=== PATIENT | female | born 1995 | race Caucasian/White ===

== ENCOUNTER → 2020-01-15 | Outpatient (CLI) | payer BC, OTHER ==
[~2020-01-15] MED LIST: LABE100 PO; SERT100 MT
[2020-01-15 14:48] LABS: BASOPHILS ABSOLUTE AUTO 0.01 K/mm3 (0.00-0.23); BASOPHILS PERCENT AUTO 0 % (0-2); EOSINOPHILS ABSOLUTE AUTO 0.02 K/mm3 (0.00-0.68); EOSINOPHILS PERCENT AUTO 0 % (0-6); Hematocrit 36.4 % (33.0-51.0); Hemoglobin 11.5 g/dL (11.5-16.0); IMMATURE GRAN ABSOLUTE AUTO 0.05 K/mm3 (0.00-0.10); IMMATURE GRAN PERCENT AUTO 1 % (0-1); LYMPHOCYTES ABSOLUTE AUTO 0.85 K/mm3 (0.84-5.20); LYMPHOCYTES PERCENT AUTO 9 % (21-46); MONOCYTES ABSOLUTE AUTO 0.79 K/mm3 (0.16-1.47); MONOCYTES PERCENT AUTO 8 % (4-13); Mean Corpuscular HGB 27.9 pg (26.0-34.0); Mean Corpuscular HGB Conc 31.6 g/dL (31.5-36.5); Mean Corpuscular Volume 88 fL (80-100); Mean Platelet Volume 10.9 fL (9.1-12.4); NEUTROPHILS ABSOLUTE AUTO 7.76 K/mm3 (1.96-9.15); NEUTROPHILS PERCENT AUTO 82 % (41-73); Platelet Count 269 K/mm3 (150-400); RDW Coefficient Variation 17.6 % (11.7-14.2); RDW Standard Deviation 57.7 fL (35.1-46.3); Red Blood Cell Count 4.12 M/mm3 (3.80-5.20); White Blood Cell Count 9.48 K/mm3 (4.00-11.30)
[2020-01-15 15:24] LABS: Alanine Aminotransfer (ALT/SGP 18 U/L (12-78); Albumin, Blood 2.6 g/dL (3.4-5.0); Albumin/Globulin Ratio 0.6 (0.8-1.8); Alk Phos 151 U/L (50-136); Anion Gap 7 mmol/L (6-16); Aspartate Aminotrans (AST/SGOT 20 U/L (12-37); Bilirubin, Total 0.3 mg/dL (0.1-1.0); Blood Urea Nitrogen 4 mg/dL (8-24); Bun/Creatinine Ratio 8.5 (12.0-20.0); CO2, Blood 24 mmol/L (21-32); Calcium, Blood 8.6 mg/dL (8.5-10.1); Chloride, Blood 109 mmol/L (98-108); Creatinine, Blood 0.47 mg/dL (0.40-1.00); Globulin, Blood 4.1 g/dL (2.2-4.0); Glomerular Filtration Rate >60 (60-); Glucose, Blood 77 mg/dL (70-99); Potassium, Blood 3.3 mmol/L (3.5-5.5); Sodium, Blood 140 mmol/L (136-145); Total Protein, Blood 6.7 g/dL (6.4-8.2)
[2020-01-15 15:26] LABS: Protein, Urine Random <5.0 mg/dL (0.0-11.9); Protein/Creat Ratio, Ur Random Unable to Calculate
== END | disposition home or self-care (01) ==
LOC: LAB 12:36 → LAB SHORT 12:36
PROVIDERS: Obstetrics & Gynecology
DX: Z34.03 Encounter for supervision of normal first pregnancy, third trimester (principal); Z3A.38 38 weeks gestation of pregnancy
CPT/HCPCS: 80053; 82570; 84156; 85025

== ENCOUNTER 2020-01-16 05:53 | Inpatient (IN) | payer BC, OTHER ==
[~2020-01-16] VITALS: Ht 170.2 cm; Wt 68.1 kg
[2020-01-16] MEDS ORDERED: LABE100 PO (06:12)
[2020-01-16] MEDS ORDERED: SERT100 MT (06:17)
[2020-01-16 06:33] LABS: BASOPHILS ABSOLUTE AUTO 0.01 K/mm3 (0.00-0.23); BASOPHILS PERCENT AUTO 0 % (0-2); EOSINOPHILS ABSOLUTE AUTO 0.03 K/mm3 (0.00-0.68); EOSINOPHILS PERCENT AUTO 0 % (0-6); Hematocrit 35.1 % (33.0-51.0); Hemoglobin 11.4 g/dL (11.5-16.0); IMMATURE GRAN ABSOLUTE AUTO 0.05 K/mm3 (0.00-0.10); IMMATURE GRAN PERCENT AUTO 1 % (0-1); LYMPHOCYTES ABSOLUTE AUTO 1.08 K/mm3 (0.84-5.20); LYMPHOCYTES PERCENT AUTO 11 % (21-46); MONOCYTES ABSOLUTE AUTO 0.72 K/mm3 (0.16-1.47); MONOCYTES PERCENT AUTO 8 % (4-13); Mean Corpuscular HGB 28.2 pg (26.0-34.0); Mean Corpuscular HGB Conc 32.5 g/dL (31.5-36.5); Mean Corpuscular Volume 87 fL (80-100); Mean Platelet Volume 10.3 fL (9.1-12.4); NEUTROPHILS ABSOLUTE AUTO 7.68 K/mm3 (1.96-9.15); NEUTROPHILS PERCENT AUTO 80 % (41-73); Platelet Count 272 K/mm3 (150-400); RDW Coefficient Variation 17.6 % (11.7-14.2); RDW Standard Deviation 56.8 fL (35.1-46.3); Red Blood Cell Count 4.04 M/mm3 (3.80-5.20); White Blood Cell Count 9.57 K/mm3 (4.00-11.30)
[2020-01-16 06:56] LABS: Creatinine, Urine Random 43.3 mg/dL (27.00-270.00); Protein, Urine Random 11.9 mg/dL (0.0-11.9); Protein/Creat Ratio, Ur Random 0.3
[2020-01-16 06:57] LABS: Alanine Aminotransfer (ALT/SGP 20 U/L (12-78); Albumin, Blood 2.7 g/dL (3.4-5.0); Albumin/Globulin Ratio 0.7 (0.8-1.8); Alk Phos 150 U/L (50-136); Anion Gap 9 mmol/L (6-16); Aspartate Aminotrans (AST/SGOT 20 U/L (12-37); Bilirubin, Total 0.2 mg/dL (0.1-1.0); Blood Urea Nitrogen 5 mg/dL (8-24); Bun/Creatinine Ratio 11.2 (12.0-20.0); CO2, Blood 22 mmol/L (21-32); Calcium, Blood 8.6 mg/dL (8.5-10.1); Chloride, Blood 109 mmol/L (98-108); Creatinine, Blood 0.45 mg/dL (0.40-1.00); Globulin, Blood 4.1 g/dL (2.2-4.0); Glomerular Filtration Rate >60 (60-); Glucose, Blood 105 mg/dL (70-99); Potassium, Blood 3.2 mmol/L (3.5-5.5); Sodium, Blood 140 mmol/L (136-145); Total Protein, Blood 6.8 g/dL (6.4-8.2)
[2020-01-18 03:24] LABS: BASOPHILS ABSOLUTE AUTO 0.03 K/mm3 (0.00-0.23); BASOPHILS PERCENT AUTO 0 % (0-2); EOSINOPHILS ABSOLUTE AUTO 0.09 K/mm3 (0.00-0.68); EOSINOPHILS PERCENT AUTO 1 % (0-6); Hematocrit 32.8 % (33.0-51.0); Hemoglobin 10.5 g/dL (11.5-16.0); IMMATURE GRAN ABSOLUTE AUTO 0.06 K/mm3 (0.00-0.10); IMMATURE GRAN PERCENT AUTO 1 % (0-1); LYMPHOCYTES ABSOLUTE AUTO 1.85 K/mm3 (0.84-5.20); LYMPHOCYTES PERCENT AUTO 16 % (21-46); MONOCYTES ABSOLUTE AUTO 1.39 K/mm3 (0.16-1.47); MONOCYTES PERCENT AUTO 12 % (4-13); Mean Corpuscular HGB 28.5 pg (26.0-34.0); Mean Corpuscular Volume 89 fL (80-100); Mean Platelet Volume 10.2 fL (9.1-12.4); NEUTROPHILS ABSOLUTE AUTO 8.48 K/mm3 (1.96-9.15); NEUTROPHILS PERCENT AUTO 71 % (41-73); Platelet Count 230 K/mm3 (150-400); RDW Coefficient Variation 17.3 % (11.7-14.2); RDW Standard Deviation 57.4 fL (35.1-46.3); Red Blood Cell Count 3.68 M/mm3 (3.80-5.20)
== END 2020-01-18 14:40 | disposition home or self-care (01) | DRG 807 ==
LOC: OBS 05:53 → BC 05:54 → OBS 06:01 → BC 06:04
PROVIDERS: ADMIT Obstetrics & Gynecology
PROC: 10E0XZZ Delivery of Products of Conception, External Approach (ICD-10-PCS; principal; 2020-01-17)
PROC: 3E033VJ Introduction of Other Hormone into Peripheral Vein, Percutaneous Approach (ICD-10-PCS; 2020-01-17)
PROC: 10907ZC Drainage of Amniotic Fluid, Therapeutic from Products of Conception, Via Natural or Artificial Opening (ICD-10-PCS; 2020-01-17)
DX: O14.94 Unspecified pre-eclampsia, complicating childbirth (principal); Z37.0 Single live birth; O70.0 First degree perineal laceration during delivery; Z3A.39 39 weeks gestation of pregnancy
CPT/HCPCS: 36415; 51702; 80053; 82570; 84156; 85025; 86850; 86870; 86900; 86901; J0290; J1200; J1885; J2001; J2405; J2590; J3010; J7120

== ENCOUNTER 2023-10-24 06:34 | Emergency (ER) | payer OTHER ==
[~2023-10-24] VITALS: Ht 162.6 cm; Wt 38.6 kg
[~2023-10-24 06:34] MED LIST changes: +IMURAN50 MG PO; +OLAN5A MM; +PRED20 PO
[2023-10-24] MEDS ORDERED: Ativan1 MG PO (07:38)
[2023-10-24] MEDS ORDERED: OLAN10 PO (07:38)
[2023-10-24 07:48] VITALS: BP 143/90
== END 2023-10-24 07:55 | disposition home or self-care (01) ==
LOC: ER 06:34
DX: F15.959 Other stimulant use, unspecified with stimulant-induced psychotic disorder, unspecified (principal); Z88.2 Allergy status to sulfonamides; Z88.1 Allergy status to other antibiotic agents; Z79.899 Other long term (current) drug therapy
CPT/HCPCS: 99284; A9270

== ENCOUNTER 2023-10-27 05:18 | Emergency (ER) | payer OTHER ==
[~2023-10-27] VITALS: Ht 167.6 cm; Wt 40.8 kg
[~2023-10-27 05:18] MED LIST changes: +Ativan1 MG PO; +OLAN10 PO
[2023-10-27] MEDS ORDERED: DEPO-PROVE150 MG/1 M IM (05:42)
[2023-10-27] MEDS ORDERED: METR500 (05:45)
[2023-10-27] MEDS ORDERED: Vitamin D1000 UNI1 PO (05:45)
[2023-10-27 06:11] LABS: Source, Urine Clean Catch
[2023-10-27 06:11] LABS: BASOPHILS ABSOLUTE AUTO 0.03 K/mm3 (0.00-0.23); BASOPHILS PERCENT AUTO 0 % (0-2); EOSINOPHILS ABSOLUTE AUTO 0.18 K/mm3 (0.00-0.68); EOSINOPHILS PERCENT AUTO 1 % (0-6); Hematocrit 41.1 % (33.0-51.0); Hemoglobin 13.3 g/dL (11.5-16.0); IMMATURE GRAN ABSOLUTE AUTO 0.07 K/mm3 (0.00-0.10); IMMATURE GRAN PERCENT AUTO 1 % (0-1); LYMPHOCYTES ABSOLUTE AUTO 0.91 K/mm3 (0.84-5.20); LYMPHOCYTES PERCENT AUTO 6 % (21-46); MONOCYTES ABSOLUTE AUTO 0.86 K/mm3 (0.16-1.47); MONOCYTES PERCENT AUTO 6 % (4-13); Mean Corpuscular HGB 28.5 pg (26.0-34.0); Mean Corpuscular HGB Conc 32.4 g/dL (31.5-36.5); Mean Corpuscular Volume 88 fL (80-100); NEUTROPHILS ABSOLUTE AUTO 12.15 K/mm3 (1.96-9.15); NEUTROPHILS PERCENT AUTO 86 % (41-73); Platelet Count 431 K/mm3 (150-400); RDW Coefficient Variation 18.8 % (11.7-14.2); Red Blood Cell Count 4.67 M/mm3 (3.80-5.20)
[2023-10-27 06:16] LABS: Appearance, Urine Clear (Clear); Blood, Urine Neg (Neg); Color, Urine Amber (P-Yellow); Glucose Qualitative, Urine Neg (Neg); Ketones, Urine 1+ (Neg); Leukocyte Esterase, Urine 2+ (Neg); Nitrite, Urine Pos (Neg); Protein, Urine 2+ (Neg); Urobilinogen, Urine 1+ (Normal)
[2023-10-27 06:24] LABS: Albumin/Globulin Ratio 0.8 (0.8-1.8); Bilirubin, Total 0.6 mg/dL (0.1-1.0); Bun/Creatinine Ratio 13.2 (12.0-20.0); Calcium, Blood 8.7 mg/dL (8.5-10.1); Creatinine, Blood 0.68 mg/dL (0.40-1.00); Potassium, Blood 4.1 mmol/L (3.5-5.5)
[2023-10-27 06:28] LABS: Bilirubin, Urine 1+ (Neg)
[2023-10-27 06:29] LABS: Bacteria Rare /hpf; Red Blood Cells, Urine 0-2 /hpf (0-2); Squamous Epithelial Cells Rare /hpf (Few)
[2023-10-27 06:30] LABS: Calcium Oxalate Crystals Few /hpf; Mucus Light (0-Heavy)
[2023-10-27 08:39] LABS: Source, Urine Straight Cath
[2023-10-27 08:46] LABS: Appearance, Urine Clear (Clear); Bilirubin, Urine Neg (Neg); Blood, Urine Neg (Neg); Color, Urine Yellow (P-Yellow); Glucose Qualitative, Urine Neg (Neg); Ketones, Urine 2+ (Neg); Leukocyte Esterase, Urine 1+ (Neg); Nitrite, Urine Neg (Neg); Protein, Urine Neg (Neg); Urobilinogen, Urine NORM (Normal)
[2023-10-27 08:56] LABS: Bacteria Rare /hpf; Mucus Light (0-Heavy); Red Blood Cells, Urine Not Seen /hpf (0-2); Squamous Epithelial Cells Not Seen /hpf (Few)
[2023-10-27 11:11] VITALS: BP 121/85
== END 2023-10-27 11:25 | disposition home or self-care (01) ==
LOC: ER 05:18
PROVIDERS: Emergency Medicine
DX: E86.1 Hypovolemia (principal); F19.282 Other psychoactive substance dependence with psychoactive substance-induced sleep disorder; K50.90 Crohn's disease, unspecified, without complications; Z79.52 Long term (current) use of systemic steroids
CPT/HCPCS: 70450; 80053; 81001; 81025; 82550; 85025; 87086; 93005; 93010; 96360; 96361; 99285-25; J7030; P9612

== ENCOUNTER 2023-11-08 00:30 | Day surgery (SDC) | payer OTHER ==
[~2023-11-08 00:30] MED LIST changes: +DEPO-PROVE150 MG/1 M IM; +METR500; +Vitamin D1000 UNI1 PO
[2023-11-08] MEDS ORDERED: Acetaminophen 325 MG TABLET PO SCH (07:25)
[2023-11-08 13:43] VITALS: BP 135/91
[2023-11-08] MEDS ORDERED: Infliximab-DYYB 200 MG in NS 250 ML IV SCH (14:00)
[2023-11-08] MEDS ORDERED: CIPR500 PO (14:24)
[2023-11-08] MEDS ORDERED: ORTIKOS9 M1 PO (14:25)
[2023-11-08] MEDS ORDERED: VITAMIN D5000 UNIT PO (14:27)
[2023-11-08 14:34] VITALS: BP 137/72
[2023-11-08 14:48] VITALS: BP 130/71
[2023-11-08 15:02] VITALS: BP 117/75
[2023-11-08 15:22] VITALS: BP 123/73
[2023-11-08 15:33] VITALS: BP 122/76
== END 2023-11-08 16:05 | disposition home or self-care (01) ==
LOC: ATC 00:30
DX: K50.90 Crohn's disease, unspecified, without complications (principal); F41.9 Anxiety disorder, unspecified; Z88.2 Allergy status to sulfonamides; Z88.8 Allergy status to other drugs, medicaments and biological substances; D50.9 Iron deficiency anemia, unspecified; F29 Unspecified psychosis not due to a substance or known physiological condition
CPT/HCPCS: 96413; 96415; A9270; J7050; Q5103

== ENCOUNTER → 2024-01-10 | Outpatient (CLI) | payer OTHER ==
[~2024-01-10] MED LIST changes: +CIPR500 PO; +ONDA4ODT MM; +ORTIKOS9 M1 PO; +VITAMIN D5000 UNIT PO
[2024-01-10 19:00] LABS: BASOPHILS ABSOLUTE AUTO 0.01 K/mm3 (0.00-0.23); BASOPHILS PERCENT AUTO 0 % (0-2); EOSINOPHILS ABSOLUTE AUTO 0.06 K/mm3 (0.00-0.68); EOSINOPHILS PERCENT AUTO 1 % (0-6); Hematocrit 40.1 % (33.0-51.0); Hemoglobin 13.3 g/dL (11.5-16.0); IMMATURE GRAN ABSOLUTE AUTO 0.02 K/mm3 (0.00-0.10); IMMATURE GRAN PERCENT AUTO 0 % (0-1); LYMPHOCYTES ABSOLUTE AUTO 1.04 K/mm3 (0.84-5.20); LYMPHOCYTES PERCENT AUTO 18 % (21-46); MONOCYTES ABSOLUTE AUTO 0.39 K/mm3 (0.16-1.47); MONOCYTES PERCENT AUTO 7 % (4-13); Mean Corpuscular HGB 29.1 pg (26.0-34.0); Mean Corpuscular HGB Conc 33.2 g/dL (31.5-36.5); Mean Corpuscular Volume 88 fL (80-100); Mean Platelet Volume 9.6 fL (9.1-12.4); NEUTROPHILS PERCENT AUTO 74 % (41-73); Platelet Count 294 K/mm3 (150-400); RDW Coefficient Variation 13.2 % (11.7-14.2); RDW Standard Deviation 42.5 fL (35.1-46.3); Red Blood Cell Count 4.57 M/mm3 (3.80-5.20); White Blood Cell Count 5.72 K/mm3 (4.00-11.30)
[2024-01-10 22:06] LABS: Albumin, Blood 3.5 g/dL (3.4-5.0); Albumin/Globulin Ratio 0.9 (0.8-1.8); Bilirubin, Total 0.2 mg/dL (0.1-1.0); Bun/Creatinine Ratio 15.3 (12.0-20.0); Calcium, Blood 9.2 mg/dL (8.5-10.1); Creatinine, Blood 0.52 mg/dL (0.40-1.00); Total Protein, Blood 7.5 g/dL (6.4-8.2)
== END ==
LOC: LAB SHORT 16:40 → LAB 16:40
PROVIDERS: Family Medicine
DX: R11.2 Nausea with vomiting, unspecified (principal)
CPT/HCPCS: 80053; 85025

== ENCOUNTER 2024-03-27 12:44 | Emergency (ER) | payer OTHER ==
[~2024-03-27] VITALS: Ht 167.6 cm; Wt 56.7 kg
[2024-03-27 12:49] VITALS: BP 145/91
[2024-03-27] MEDS ORDERED: Robaxin750 MG PO (13:25)
== END 2024-03-27 13:32 | disposition home or self-care (01) ==
LOC: ER 12:44
DX: M54.6 Pain in thoracic spine (principal); V89.2XXA Person injured in unspecified motor-vehicle accident, traffic, initial encounter; Z79.899 Other long term (current) drug therapy; Z88.1 Allergy status to other antibiotic agents
CPT/HCPCS: 72070; 99283-25

== ENCOUNTER 2024-04-01 06:11 | Emergency (ER) | payer OTHER ==
[~2024-04-01] VITALS: Ht 167.6 cm; Wt 56.7 kg
[~2024-04-01 06:11] MED LIST changes: +Robaxin750 MG PO
[2024-04-01 08:46] LABS: BASOPHILS ABSOLUTE AUTO 0.02 K/mm3 (0.00-0.23); BASOPHILS PERCENT AUTO 0 % (0-2); EOSINOPHILS ABSOLUTE AUTO 0.01 K/mm3 (0.00-0.68); EOSINOPHILS PERCENT AUTO 0 % (0-6); Hematocrit 40.3 % (33.0-51.0); Hemoglobin 13.5 g/dL (11.5-16.0); IMMATURE GRAN ABSOLUTE AUTO 0.06 K/mm3 (0.00-0.10); IMMATURE GRAN PERCENT AUTO 0 % (0-1); LYMPHOCYTES ABSOLUTE AUTO 0.14 K/mm3 (0.84-5.20); LYMPHOCYTES PERCENT AUTO 1 % (21-46); MONOCYTES ABSOLUTE AUTO 0.62 K/mm3 (0.16-1.47); MONOCYTES PERCENT AUTO 4 % (4-13); Mean Corpuscular HGB 29.3 pg (26.0-34.0); Mean Corpuscular HGB Conc 33.5 g/dL (31.5-36.5); Mean Corpuscular Volume 88 fL (80-100); Mean Platelet Volume 9.9 fL (9.1-12.4); NEUTROPHILS PERCENT AUTO 94 % (41-73); Platelet Count 344 K/mm3 (150-400); RDW Coefficient Variation 13.2 % (11.7-14.2); RDW Standard Deviation 42.4 fL (35.1-46.3); White Blood Cell Count 14.95 K/mm3 (4.00-11.30)
[2024-04-01 08:58] LABS: Albumin, Blood 4.3 g/dL (3.4-5.0); Albumin/Globulin Ratio 1.1 (0.8-1.8); Bilirubin, Total 0.7 mg/dL (0.1-1.0); Bun/Creatinine Ratio 24.8 (12.0-20.0); Creatinine, Blood 0.52 mg/dL (0.40-1.00); Potassium, Blood 3.6 mmol/L (3.5-5.5); Total Protein, Blood 8.3 g/dL (6.4-8.2)
[2024-04-01] MEDS ORDERED: Ondansetron HCl 2 MG / ML 2ML Vial IV ONE (09:40)
[2024-04-01] MEDS ORDERED: NS 1,000 ML IV SCH (09:40)
[2024-04-01 09:46] VITALS: BP 143/87
[2024-04-01] MEDS ORDERED: METO10 PO (10:48)
[2024-04-01] MEDS ORDERED: ONDA4ODT MM (10:48)
== END 2024-04-01 11:00 | disposition home or self-care (01) ==
LOC: ER 06:11
PROVIDERS: Student in an Organized Health Care Education/Training Program
DX: K52.9 Noninfective gastroenteritis and colitis, unspecified (principal); Z87.19 Personal history of other diseases of the digestive system; Z79.899 Other long term (current) drug therapy; Z88.1 Allergy status to other antibiotic agents
CPT/HCPCS: 80053; 83690; 85025; 96361; 96374; 99284-25; J2405; J7030

== ENCOUNTER 2024-04-10 03:34 | Day surgery (SDC) | payer OTHER ==
[~2024-04-10 03:34] MED LIST changes: +METO10 PO
[2024-04-10] MEDS ORDERED: Acetaminophen 325 MG TABLET PO SCH (07:20)
[2024-04-10 13:38] VITALS: BP 124/70
[2024-04-10] MEDS ORDERED: Infliximab-DYYB 300 MG in NS 250 ML IV SCH (13:45)
--- NOTE | 2024-04-10 13:45 | NUR ---
PT DECLINES PRE MEDS.
== END 2024-04-10 16:15 | disposition home or self-care (01) ==
LOC: ATC 03:34
DX: K50.90 Crohn's disease, unspecified, without complications (principal); D50.9 Iron deficiency anemia, unspecified; K60.3 Anal fistula; F29 Unspecified psychosis not due to a substance or known physiological condition
CPT/HCPCS: 96413; 96415; J7050; Q5103

== ENCOUNTER 2024-07-31 00:33 | Day surgery (SDC) | payer OTHER ==
[~2024-07-31] VITALS: Wt 60.8 kg
[2024-07-31 14:02] VITALS: BP 143/71
[2024-07-31] MEDS ORDERED: Infliximab-DYYB 500 MG in NS 250 ML IV SCH (14:10)
== END 2024-07-31 16:43 | disposition home or self-care (01) ==
LOC: ATC 00:33
DX: K50.90 Crohn's disease, unspecified, without complications (principal); D50.9 Iron deficiency anemia, unspecified; F29 Unspecified psychosis not due to a substance or known physiological condition; K60.30 Anal fistula, unspecified; Z79.899 Other long term (current) drug therapy; Z88.8 Allergy status to other drugs, medicaments and biological substances
CPT/HCPCS: 96365; 96366; J7050; Q5103

== ENCOUNTER 2024-10-02 07:32 | Day surgery (SDC) | payer OTHER ==
--- NOTE | 2024-09-25 06:56 | NUR ---
Pt is ill today and will not be in for her infusion today.
[~2024-10-02] VITALS: Wt 66.7 kg
[2024-10-02 07:40] VITALS: BP 146/91
[2024-10-02] MEDS ORDERED: Infliximab-DYYB 500 MG in NS 250 ML IV SCH (07:45)
== END 2024-10-02 10:09 | disposition home or self-care (01) ==
LOC: ATC 07:32
DX: K50.90 Crohn's disease, unspecified, without complications (principal); D50.9 Iron deficiency anemia, unspecified; F29 Unspecified psychosis not due to a substance or known physiological condition; Z88.1 Allergy status to other antibiotic agents; Z88.8 Allergy status to other drugs, medicaments and biological substances; Z79.899 Other long term (current) drug therapy
CPT/HCPCS: 96413; 96415; J7050; Q5103

== ENCOUNTER 2024-11-27 01:36 | Day surgery (SDC) | payer OTHER ==
[2024-11-27 14:17] VITALS: BP 119/78
[2024-11-27] MEDS ORDERED: Infliximab-DYYB 500 MG in NS 250 ML IV SCH (14:20)
== END 2024-11-27 16:41 | disposition home or self-care (01) ==
LOC: ATC 01:36
DX: K50.90 Crohn's disease, unspecified, without complications (principal); D50.9 Iron deficiency anemia, unspecified; Z79.899 Other long term (current) drug therapy
CPT/HCPCS: 96413; 96415; J7050; Q5103

== ENCOUNTER 2025-01-22 08:33 | Day surgery (SDC) | payer OTHER ==
[2025-01-22 14:14] VITALS: BP 137/79
[2025-01-22] MEDS ORDERED: NS IV SCH (14:30)
[2025-01-22] MEDS ORDERED: INFLIXIMAB DYYB IV SCH (14:30)
== END 2025-01-22 17:08 | disposition home or self-care (01) ==
LOC: ATC 08:33
DX: K50.90 Crohn's disease, unspecified, without complications (principal); D50.9 Iron deficiency anemia, unspecified; Z88.8 Allergy status to other drugs, medicaments and biological substances
CPT/HCPCS: 96413; 96415; J7050; Q5103

== ENCOUNTER 2025-05-14 01:45 | Day surgery (SDC) | payer OTHER ==
[~2025-05-14] VITALS: Wt 73.9 kg
[2025-05-14 14:09] VITALS: BP 131/83
[2025-05-14] MEDS ORDERED: Infliximab-DYYB 600 MG in NS 250 ML IV SCH (14:25)
== END 2025-05-14 16:51 | disposition home or self-care (01) ==
LOC: ATC 01:45
DX: K50.90 Crohn's disease, unspecified, without complications (principal); M12.80 Other specific arthropathies, not elsewhere classified, unspecified site; D50.9 Iron deficiency anemia, unspecified; Z79.620 Long term (current) use of immunosuppressive biologic; Z79.624 Long term (current) use of inhibitors of nucleotide synthesis; Z88.2 Allergy status to sulfonamides; Z88.8 Allergy status to other drugs, medicaments and biological substances
CPT/HCPCS: 96413; 96415; J7050; Q5103

== ENCOUNTER 2025-07-09 00:19 | Day surgery (SDC) | payer OTHER ==
[~2025-07-09] VITALS: Wt 71.1 kg
[2025-07-09 14:15] VITALS: BP 123/88
[2025-07-09] MEDS ORDERED: Infliximab-DYYB 500 MG in NS 250 ML IV SCH (15:15)
== END 2025-07-09 17:37 | disposition home or self-care (01) ==
LOC: ATC 00:19
DX: K50.10 Crohn's disease of large intestine without complications (principal); K60.30 Anal fistula, unspecified; Z88.1 Allergy status to other antibiotic agents; Z88.8 Allergy status to other drugs, medicaments and biological substances
CPT/HCPCS: 96413; J7050; Q5103

== ENCOUNTER 2025-07-30 08:52 | Emergency (ER) | payer OTHER ==
[~2025-07-30] VITALS: Ht 162.6 cm; Wt 61.2 kg
[2025-07-30] MEDS ORDERED: Ondansetron HCl 2 MG / ML 2ML Vial IV ONE (09:10)
[2025-07-30] MEDS ORDERED: NS 1,000 ML IV SCH (09:10)
[2025-07-30 09:48] VITALS: BP 112/65
[2025-07-30 10:05] LABS: BASOPHILS ABSOLUTE AUTO 0.02 K/mm3 (0.00-0.23); BASOPHILS PERCENT AUTO 0 % (0-2); EOSINOPHILS ABSOLUTE AUTO 0.00 K/mm3 (0.00-0.68); EOSINOPHILS PERCENT AUTO 0 % (0-6); Hematocrit 40.2 % (33.0-51.0); Hemoglobin 13.4 g/dL (11.5-16.0); IMMATURE GRAN ABSOLUTE AUTO 0.07 K/mm3 (0.00-0.10); IMMATURE GRAN PERCENT AUTO 1 % (0-1); LYMPHOCYTES ABSOLUTE AUTO 0.68 K/mm3 (0.84-5.20); LYMPHOCYTES PERCENT AUTO 4 % (21-46); MONOCYTES ABSOLUTE AUTO 1.08 K/mm3 (0.16-1.47); MONOCYTES PERCENT AUTO 7 % (4-13); Mean Corpuscular HGB Conc 33.3 g/dL (31.5-36.5); Mean Corpuscular Volume 88 fL (80-100); NEUTROPHILS ABSOLUTE AUTO 13.60 K/mm3 (1.96-9.15); NEUTROPHILS PERCENT AUTO 88 % (41-73); NRBC ABSOLUTE 0.00 K/mm3 (0.00-0.02); NRBC Auto 0.0 /100 WBC (0.0-0.2); Platelet Count 343 K/mm3 (150-400); RDW Coefficient Variation 13.2 % (11.7-14.2); RDW Standard Deviation 42.1 fL (35.1-46.3)
[2025-07-30 10:15] LABS: Alanine Aminotransfer (ALT/SGP 38.0 U/L (12-78); Albumin, Blood 4.4 g/dL (3.4-5.0); Albumin/Globulin Ratio 1.4 (0.8-1.8); Anion Gap 11.0 mmol/L (3-11); Aspartate Aminotrans (AST/SGOT 18.0 U/L (12-37); Bilirubin, Total 0.8 mg/dL (0.1-1.0); Blood Urea Nitrogen 13.0 mg/dL (8-24); CO2, Blood 22.0 mmol/L (21-32); Calcium, Blood 9.1 mg/dL (8.5-10.1); Chloride, Blood 108.0 mmol/L (98-108); Creatinine, Blood 0.58 mg/dL (0.40-1.00); Globulin, Blood 3.2 g/dL (2.2-4.0); Glucose, Blood 90.0 mg/dL (70-99); Potassium, Blood 3.4 mmol/L (3.5-5.5); Sodium, Blood 138.0 mmol/L (136-145); Total Protein, Blood 7.6 g/dL (6.4-8.2)
== END 2025-07-30 10:43 | disposition home or self-care (01) ==
LOC: ER 08:52
PROVIDERS: Emergency Medicine
DX: R11.2 Nausea with vomiting, unspecified (principal); Z88.2 Allergy status to sulfonamides; Z88.1 Allergy status to other antibiotic agents; Z79.899 Other long term (current) drug therapy
CPT/HCPCS: 80053; 83690; 85025; 96374; 99284-25; J2405; J7030

== ENCOUNTER 2025-09-03 04:26 | Day surgery (SDC) | payer OTHER ==
[~2025-09-03] VITALS: Wt 68.5 kg
[2025-09-03 14:05] VITALS: BP 141/92
[2025-09-03] MEDS ORDERED: Infliximab-DYYB 500 MG in NS 250 ML IV SCH (14:15)
== END 2025-09-03 17:00 | disposition home or self-care (01) ==
LOC: ATC 04:26
DX: K50.90 Crohn's disease, unspecified, without complications (principal); Z88.1 Allergy status to other antibiotic agents; Z88.8 Allergy status to other drugs, medicaments and biological substances
CPT/HCPCS: 96413; 96415; J7050; Q5103